=== PATIENT | female | born 1995 | race Caucasian/White ===

== ENCOUNTER 2021-12-03 11:18 | Emergency (ER) | payer MEDICAID ==
[~2021-12-03] VITALS: Ht 167.6 cm; Wt 111.1 kg
[2021-12-03 11:25] VITALS: BP 135/96
--- NOTE | 2021-12-03 11:29 | NUR ---
PT TO WAIT IN LOBBY.
--- NOTE | 2021-12-03 11:49 | NUR ---
26 Y/O FEMALE C/O INTERMITTENT VAGINAL BLEEDING WITH CLOTS [id number]. PT BEGAN BLEEDING 11/11/21. PT STATES SHE WENT TO URGENT CARE AND PRESCRIBED RX TO STOP BLEEDING WITH SOME RELIEF. PT STATES +DIZZINESS. PT STATES LMP 07/20/21. PT ALSO C/O CRAMPING TO LOWER LEFT PELVIC AREA 5/10 DESCRIBES SHARP. DENIES FEVER/CHILLS. DENIES N/V/D. PMH: OVARIAN CYST NKA
--- NOTE | 2021-12-03 12:36 | NUR ---
[employer]ISSIONER WITH PT IN A.
[2021-12-03] MEDS: KETOROLAC 30 MG/ML VIAL IM ONE (12:46)
--- NOTE | 2021-12-03 12:46 | NUR ---
PT TAKEN TO US VIA W/C.
[2021-12-03 12:57] LABS: ANION GAP 10.3 (8-16); CARBON DIOXIDE 27.9 mmol/L (21-32); CREATININE 0.8 mg/dL (0.6-1.3); POTASSIUM 4.2 mmol/L (3.5-5.1)
[2021-12-03 13:15] LABS: BASOPHILS % (AUTO) 0.5 % (0.0-2.0); EOSINOPHILS # (AUTO) 0.1 K/uL (0-0.4); HEMATOCRIT 40.3 % (36-48); HEMOGLOBIN 13.6 g/dL (12.0-16.0); LYMPHOCYTES # (AUTO) 2.2 K/uL (2.5-16.5); LYMPHOCYTES % (AUTO) 33.1 % (20.5-51.1); MEAN CORPUSCULAR HEMOGLOBIN 30 pg (27-31); MEAN CORPUSCULAR HGB CONC 34 g/dL (33-37); MEAN CORPUSCULAR VOLUME 88.3 fL (80-94); MONOCYTES # (AUTO) 0.4 K/uL (0.8-1.0); MONOCYTES % (AUTO) 6.1 % (1.7-9.3); NEUTROPHILS # (AUTO) 3.9 K/uL (1.8-7.7); NEUTROPHILS % (AUTO) 59.3 % (42.2-75.2); PLATELET COUNT (AUTO) 266 K/uL (140-450); RED BLOOD CELL COUNT(AUTO) 4.57 MIL/uL (4.20-5.40); RED CELL DISTRIBUTION WIDTH 13.9 % (11.6-13.7); WHITE BLOOD COUNT (AUTO) 6.6 K/uL (4.8-10.8)
--- NOTE | 2021-12-03 13:49 | NUR ---
PT REASSESED IN TRIAGE ROOM, VSS, SENT TO LOBBY.
[2021-12-03] MEDS ORDERED: IBUP-2213 PO (15:29)
--- NOTE | 2021-12-03 16:03 | NUR ---
Patient discharged with v/s stable. Written and verbal after care instructions ABOUT DYSFUNCTIONAL UTERINE BLEEDING given and explained. Patient alert, oriented and verbalized understanding of instructions. Ambulatory with steady gait. All questions addressed prior to discharge. ID band removed. Patient advised to follow up with PMD. Rx of MOTRIN given. Patient educated on indication of medication including possible reaction and side effects. Opportunity to ask questions provided and answered.
== END 2021-12-03 16:03 | disposition home or self-care (01) ==
LOC: MED 11:18
DX: N93.8 Other specified abnormal uterine and vaginal bleeding (principal); R03.0 Elevated blood-pressure reading, without diagnosis of hypertension
CPT/HCPCS: 36415; 76830; 76856; 80048; 81002; 81025; 85025; 93976; 96372; 99284; J1885; Q0092